=== PATIENT | female | born 1970 | race African-American/Black ===

== ENCOUNTER 2016-03-27 05:16 | Day surgery (SDC) | payer OTHER ==
[2016-03-20 10:46] LABS: HEMATOCRIT 42.9 % (36.0-47.0); HEMOGLOBIN 14.5 g/dL (12.0-15.5); HGB HCT DIFFERENCE 0.6; MEAN CORPUSCULAR HGB CONC 33.8 g/dL (32.0-36.0); MEAN CORPUSCULAR VOLUME 86 fl (80-97); RED BLOOD COUNT 4.99 10^6/uL (3.72-5.28); RED CELL DISTRIBUTION WIDTH 14.2 % (11.5-14.0); WHITE BLOOD COUNT 4.7 10^3/uL (4.0-10.5)
[2016-03-20 10:57] LABS: APPEARANCE,URINE CLEAR; BILIRUBIN,URINE NEGATIVE (NEGATIVE); GLUCOSE, URINE NEGATIVE (NEGATIVE); KETONES,URINE NEGATIVE (NEGATIVE); LEUKOCYTE ESTERASE,URINE NEGATIVE (NEGATIVE); NITRITE,URINE NEGATIVE (NEGATIVE); PROTEIN,URINE NEGATIVE (NEGATIVE); URINE SPECIFIC GRAVITY 1.003; UROBILINOGEN,URINE NEGATIVE mg/dL (<2.0)
[2016-03-20 11:15] LABS: ANION GAP 7 (5-19); BLOOD UREA NITROGEN 15 mg/dL (7-20); CALCIUM 10.6 mg/dL (8.4-10.2); CARBON DIOXIDE 32 mmol/L (22-30); CHLORIDE 104 mmol/L (98-107); CREATININE RESULT 0.94 mg/dL (0.52-1.25); GLUCOSE 96 mg/dL (75-110); SODIUM 143.3 mmol/L (137-145)
--- NOTE | 2016-03-20 11:24 | EKG REPORT ---
SEVERITY:- NORMAL ECG - SINUS RHYTHM : Confirmed by: Jarde Montoya 20-Mar-2016 11:23:49
[~2016-03-27 05:16] MED LIST: CEFAZOLIN 2 GM/D5W RTU 2 GM/50 ML RTUPB IV PRN; LACTATED RINGERS 1000 ML IV PRN; LIDOCAINE 0.5% INJ-PF (5 MG/ML) 50 ML SDV SUBCUT PRN
[2016-03-27 05:57] LABS: ANION GAP 12 (5-19); BLOOD UREA NITROGEN 14 mg/dL (7-20); CALCIUM 9.8 mg/dL (8.4-10.2); CARBON DIOXIDE 23 mmol/L (22-30); CHLORIDE 107 mmol/L (98-107); CREATININE RESULT 0.79 mg/dL (0.52-1.25); GLUCOSE 94 mg/dL (75-110); POTASSIUM 4.3 mmol/L (3.6-5.0); SODIUM 141.7 mmol/L (137-145)
[2016-03-27] MEDS ORDERED: ALBUTEROL SULFATE 0.083% NEB 2.5 MG/3 ML AMPUL NEB ONE (06:08)
[2016-03-27] MEDS ORDERED: BUPIVACAINE HCL 0.5 % INJ/PF 30 ML SDV ONE (06:32)
[2016-03-27] MEDS ORDERED: LIDOCAINE 1%/EPINEPHRINE INJ 20 ML VIAL ONE (06:32)
[2016-03-27] MEDS ORDERED: FENTANYL CITRATE INJ/PF 100 MCG/2 ML AMPUL ONE (07:14)
[2016-03-27] MEDS ORDERED: MIDAZOLAM 2 MG/2 ML INJ ONE (07:14)
[2016-03-27] MEDS ORDERED: PROPOFOL INJ 200 MG/20 ML VIAL IV ONE (07:15)
[2016-03-27] MEDS ORDERED: ACETAMINOPHEN 100 ML IV ONE (07:15)
[2016-03-27] MEDS ORDERED: DEXMEDETOMIDINE INJ 80 MCG/20 ML VIAL IV ONE (07:15)
[2016-03-27] MEDS ORDERED: EPHEDRINE SULFATE INJ 50 MG/1 ML AMPULE ONE (07:24)
[2016-03-27] MEDS ORDERED: BUPIVACAINE HCL 0.5%-EPI 1:200000 INJ/PF 30 ML VIAL ONE (08:03)
--- NOTE | 2016-03-27 08:41 | Operative Report ---
Operative Report DATE OF SURGERY: 03/27/16 PREOPERATIVE DIAGNOSIS: Right knee pain and patellofemoral arthritis OPERATION: Right knee arthroscopy. Right tibial tubercle osteotomy SURGEON: MARC FLOYD ANESTHESIA: GA ESTIMATED BLOOD LOSS: minimal PROCEDURE: With the patient supine on the operating table the right looks terms prepped and draped in a sterile fashion. The knee is insufflated with accommodation Marcaine, Xylocaine, and epinephrine. Subsequent medial lateral infrapatellar portals are graded introduction the arthroscope and debridements mentation. 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 At this point. We opted to proceed with a tibial tubercle osteotomy. Incision is made over the medial aspect of the tibial tubercle and extending down approximately 8 cm. Sharp dissection is carried incision and elevate the fibrous layer. The soft tissue attachments to the lateral aspect the tibial tubercle are maintained. 062 mm K wires were then placed along a trajectory of the intended osteotomy. The goal here is primarily to the tibia tubercle anterior as opposed to medially or laterally so the inclination of the osteotomy is fairly steep. Once am satisfied with the intended osteotomy slope which is examined fluoroscopically, an oscillating saw was used to perform the osteotomy. The tibial tubercle is then mobilized and secured with 2 cannulated 5.0 Striker titanium screws. Screw placement and tibial tubercle osteotomy her again examined fluoroscopically and felt to be adequate. At this point the tourniquet was deflated. Irrigation of the wound is ensues. Hemostasis obtained with electrocautery. The wounds are then closed in layers using opted Vicryl followed by nylon. A sterile compressive dressing and knee immobilizer applied and the patient's returned to the PACU.
[2016-03-27] MEDS ORDERED: MEPERIDINE HCL/PF INJ 25 MG/1 ML DISP.SYRIN IV PRN (08:50)
[2016-03-27] MEDS ORDERED: PROMETHAZINE HCL INJ 25 MG/1 ML VIAL IV PRN ×2 (08:50)
[2016-03-27] MEDS ORDERED: DIPHENHYDRAMINE HCL 50 MG/ML VIAL IV PRN (08:50)
[2016-03-27] MEDS ORDERED: MORPHINE SULFATE 10 MG/ML INJ IV PRN (08:50)
[2016-03-27] MEDS ORDERED: FENTANYL CITRATE INJ/PF 100 MCG/2 ML AMPUL IV PRN ×3 (08:50)
[2016-03-27] MEDS ORDERED: ONDANSETRON 4 MG TAB.RAPDIS SL PRN (09:24)
[2016-03-27] MEDS ORDERED: OXYCODONE HCL IR 5 MG TABLET PO PRN (09:24)
[2016-03-27] MEDS ORDERED: LIDOCAINE 2% INJ-PF (20 MG/ML) 10 ML AMPUL ONE (10:14)
[2016-03-27] MEDS ORDERED: METOCLOPRAMIDE HCL INJ/PF 10 MG/2 ML SDV ONE (10:14)
[2016-03-27] MEDS ORDERED: DEXAMETHASONE SOD PHOSPHATE INJ 4 MG/1 ML VIAL ONE (10:14)
[2016-03-27] MEDS ORDERED: ONDANSETRON HCL INJ/PF 4 MG/2 ML SDV ONE (10:14)
[2016-03-27] MEDS ORDERED: GLYCOPYRROLATE INJ 0.4 MG/2 ML VIAL ONE (10:14)
[2016-03-27] MEDS ORDERED: KETOROLAC TROMETHAMINE 60 MG/2 ML SDV ONE (10:14)
[2016-03-27 11:31] VITALS: BP 120/76
== END 2016-03-27 10:45 | disposition home or self-care (01) ==
LOC: OROUT 05:16
PROVIDERS: ATTEND Orthopaedic Surgery
PROC: 0QSG04Z Reposition Right Tibia with Internal Fixation Device, Open Approach (ICD-10-PCS; principal; 2016-03-27 07:30)
PROC: 0SJC4ZZ Inspection of Right Knee Joint, Percutaneous Endoscopic Approach (ICD-10-PCS; 2016-03-27 07:30)
DX: M17.9 Osteoarthritis of knee, unspecified (principal); M94.261 Chondromalacia, right knee; E66.9 Obesity, unspecified; Z68.39 Body mass index [BMI] 39.0-39.9, adult; Z79.82 Long term (current) use of aspirin; Z79.899 Other long term (current) drug therapy; Z88.1 Allergy status to other antibiotic agents
CPT/HCPCS: 27418; 93005; 36415 ×2; 85027; 80048 ×2; 81001; 71020; 73560; 93010; 94640; 29870; L1830; C1769; J2250; J3490 ×4; J1100; J1885; J3010; J2765; J2405; J2704; J0690; J0131; 01400